=== PATIENT | male | born 1965 | race Caucasian/White ===

== ENCOUNTER 2016-08-09 21:18 | Emergency (ER) | payer BC ==
[2016-08-09 21:27] VITALS: BP 176/90
--- NOTE | 2016-08-09 22:47 | UC ---
Respiratory Complaint HPI - HPI Summary HPI Summary: ONSET OF COUGH, FEVER AND CHILLS TODAY. NO ST, EAR PAIN, N/V/D. NO MYALGIAS. HAS HAD CONTACT WITH SOMEONE WITH FLU. DID NOT GET A FLU SHOT THIS SEASON. - History of Current Complaint Chief Complaint: UCRespiratory Stated Complaint: CHILLS, AND LUNG PRESSURE Time Seen by Provider: 08/09/16 21:35 Hx Obtained From: Patient Onset/Duration: Sudden Onset, Lasting Hours, Still Present Timing: Constant Severity Initially: Moderate Severity Currently: Moderate Pain Intensity: 3 Pain Scale Used: 0-10 Numeric Character: Cough: Nonproductive Aggravating Factors: Nothing Alleviating Factors: Nothing Associated Signs And Symptoms: Positive: Fever, Chills, URI, Nasal Congestion. Negative: Dyspnea, Pleuritic Chest Pain, Wheezing, Hemoptysis, Dizziness, Calf Pain, Calf Swelling, Edema, Hoarseness, Sinus Discomfort - Allergies/Home Medications Allergies/Adverse Reactions: Allergies Allergy/AdvReac Type Severity Reaction Status Date / Time Codeine AdvReac Severe Itching Verified 08/09/16 21:28 PMH/Surg Hx/FS Hx/Imm Hx Cardiovascular History Of: Reports: Hypertension - not taking meds now - Surgical History Surgical History: Yes Surgery Procedure, Year, and Place: deviated septum repair; vasectomy - Family History Known Family History: Positive: Cardiac Disease, Hypertension, Diabetes - Social History Alcohol Use: None Substance Use Type: None Smoking Status (MU): Former Smoker When Did the Patient Quit Smoking/Using Tobacco: 14 years - Immunization History Most Recent Influenza Vaccination: 9029-2901 Review of Systems Constitutional: Fever, Chills, Fatigue ENT: Nasal Discharge Respiratory: Cough Cardiovascular: Negative Gastrointestinal: Negative Neurological: Headache All Other Systems Reviewed And Are Negative: Yes Physical Exam Triage Information Reviewed: Yes Appearance: Well-Appearing, No Pain Distress, Well-Nourished Vital Signs: Initial Vital Signs Temp 100.1 F 08/09/16 21:24 Pulse 95 08/09/16 21:24 Resp 18 08/09/16 21:24 BP 176/90 08/09/16 21:24 Pulse Ox 98 08/09/16 21:24 Vital Signs Reviewed: Yes Eyes: Positive: Conjunctiva Clear ENT: Positive: Hearing grossly normal, Pharynx normal, TMs normal Neck: Positive: Supple, Nontender, No Lymphadenopathy Respiratory Exam: Normal Cardiovascular: Positive: Tachycardia Abdomen Description: Positive: Soft Musculoskeletal: Positive: No Edema Neurological: Positive: Alert Psychological: Positive: Age Appropriate Behavior Skin: Negative: rashes UC Diagnostic Evaluation - Laboratory O2 Sat by Pulse Oximetry: 98 Diagnostic Studies Comment: RAPID FLU NEGATIVE Respiratory Course/Dx - Differential Dx/Diagnosis Provider Diagnoses: FLU LIKE ILLNESS/VIRAL SYNDROME Discharge - Discharge Plan Condition: Stable Disposition: HOME Patient Education Materials: Viral Syndrome (ED) Referrals: Reji Padgett DO [Primary Care Provider] - If Needed Additional Instructions: FLU SWAB NEGATIVE. REST, HYDRATE, OTC MEDS NEEDED FOR FEVER AND DISCOMFORT.
== END 2016-08-09 22:50 | disposition home or self-care (01) ==
LOC: UCEAST 21:18
DX: J11.1 Influenza due to unidentified influenza virus with other respiratory manifestations (principal); B34.9 Viral infection, unspecified; Z88.5 Allergy status to narcotic agent; Z87.891 Personal history of nicotine dependence
CPT/HCPCS: 87502; 99211; G0463